=== PATIENT | male | born 2005 | race Caucasian/White ===

== ENCOUNTER 2023-06-08 13:39 | Emergency (ER) | payer OTHER ==
[2023-06-08] MEDS ORDERED: Ketorolac 30 MG/ML SDV IVPUSH ONE (14:00)
[2023-06-08 14:09] LABS: BASOPHILS ABSOLUTE AUTO 0.1 x10-3/uL (0.0-0.3); BASOPHILS PERCENT AUTO 0.8 % (0.3-3.8); BLOOD UREA NITROGEN,BUN 17 mg/dL (7-18); BUN/CREATININE RATIO 18.9 (9-20); CALCIUM 9.5 mg/dL (8.2-10.1); CARBON DIOXIDE,CO2 30 mmol/L (21-32); CHLORIDE,CL 104 mmol/L (100-110); CREATININE 0.9 mg/dL (0.70-1.30); EOSINOPHILS ABSOLUTE AUTO 0.1 x10-3/uL (0.0-0.6); EOSINOPHILS PERCENT AUTO 1.3 % (0.1-6.8); ESTIMATED GFR 126 mL/min (>60); GLUCOSE RANDOM 101 mg/dL (80-116); HEMATOCRIT 46.2 % (38.3-50.1); LYMPHOCYTES ABSOLUTE AUTO 2.2 x10-3/uL (0.5-4.5); LYMPHOCYTES PERCENT AUTO 34.1 % (15.8-45.3); MEAN CORPUSCULAR HEMOGLOBIN 29.3 pg (27.0-33.3); MEAN CORPUSCULAR HGB CONC 34.6 g/dL (28.7-35.3); MEAN CORPUSCULAR VOLUME 84.7 fL (80.8-98.7); MEAN PLATELET VOLUME 7.9 fL (6.7-11.0); MONOCYTES ABSOLUTE AUTO 0.5 x10-3/uL (0.0-1.2); MONOCYTES PERCENT AUTO 8.2 % (5.5-15.2); NEUTROPHILS ABSOLUTE AUTO 3.6 x10-3/uL (1.7-6.9); NEUTROPHILS PERCENT AUTO 55.6 % (40.3-71.8); PLATELET COUNT,PLT 260 x10(3)uL (117-477); POTASSIUM,K 4.1 mmol/L (3.5-5.3); RED BLOOD CELL COUNT 5.45 x10(6)uL (3.90-5.90); RED CELL DISTRIBUTION WIDTH 13.9 % (12.4-15.0); SODIUM,NA 139 mmol/L (135-145); WHITE BLOOD CELL COUNT,WBC 6.5 x10-3/uL (3.2-10.1)
[2023-06-08 14:19] LABS: C-REACTIVE PROTEIN 0.13 mg/dL (<0.33); TROPONIN I 13.4 pg/mL (4.0-60.3)
[2023-06-08 14:23] LABS: A/G RATIO 0.9; ALANINE AMINOTRANSFERASE,ALT 33 U/L (12-36); ALKALINE PHOSPHATASE 142 IU/L (56-112); ASPARTATE AMNIOTRANSFERASE,AST 19 IU/L (5-25); BILIRUBIN TOTAL 0.6 mg/dL (0.1-1.2); PROTEIN TOTAL,TP 8.3 g/dL (6.0-8.0)
== END 2023-06-08 15:05 | disposition home or self-care (01) ==
LOC: FB.ED 13:39
DX: R07.89 Other chest pain (principal); R07.2 Precordial pain
CPT/HCPCS: 71046; 80053; 84484; 85025; 85379; 86140; 93005; 99285